=== PATIENT | female | born 1995 | race African-American/Black ===

== ENCOUNTER 2019-05-27 01:53 | Emergency (ER) | payer MEDICAID ==
[~2019-05-27] VITALS: Ht 162.6 cm; Wt 100.0 kg
[2019-05-27 05:00] LABS: *AMPHETAMINES SCREEN URINE NEGATIVE (NEGATIVE); *BARBITURATES SCREEN URINE NEGATIVE (NEGATIVE); *BENZODIAZEPINES SCREEN URINE NEGATIVE (NEGATIVE); *COCAINE SCREEN URINE NEGATIVE (NEGATIVE); METHADONE URINE SCREEN NEGATIVE (NEGATIVE); OPIATES URINE SCREEN NEGATIVE (NEGATIVE); PHENCYCLIDINE URINE SCREEN NEGATIVE (NEGATIVE)
[2019-05-27 05:03] LABS: BASOPHILS % 0.3 % (0.0-2.0); EOSINOPHILS % 0.2 % (0.0-5.0); HEMATOCRIT. 36.2 % (36.0-48.0); HEMOGLOBIN. 11.8 g/dL (12.0-16.0); MEAN CORPUSCULAR HEMOGLOBIN 29.2 pg (28.0-32.0); MEAN CORPUSCULAR VOLUME 89.3 fL (81.0-99.0); MEAN PLATELET VOLUME 8.4 fl (7.4-10.4); NEUTROPHILS % 73.5 % (40.0-76.0); PLATELET 211 x1000/uL (130-400); RED BLOOD CELL COUNT 4.05 mill/uL (4.2-5.4)
[2019-05-27 05:05] LABS: CANNABINOID URINE SCREEN PRESUMTIVE POSITIVE (NEGATIVE)
[2019-05-27 05:09] LABS: CHLORIDE 107 mEq/L (98-107)
[2019-05-27 05:11] LABS: HCG SCREEN NEGATIVE
[2019-05-27 05:11] LABS: CLARITY URINE CLOUDY (CLEAR); COLOR URINE DARK YELLOW (YELLOW); KETONES URINE TRACE (NEGATIVE); LEUKOCYTE ESTERASE URINE NEGATIVE (NEGATIVE); NITRITE URINE NEGATIVE (NEGATIVE); OCCULT BLOOD URINE NEGATIVE (NEGATIVE); PROTEIN URINE 1+ (NEGATIVE); SPECIFIC GRAVITY URINE 1.033 (1.005-1.030)
[2019-05-27 05:13] LABS: ETHANOL BLOOD < 10 mg/dL
[2019-05-27 11:20] VITALS: BP 120/74
== END 2019-05-27 11:33 | disposition home or self-care (01) ==
LOC: ER 05:21
DX: F32.9 Major depressive disorder, single episode, unspecified (principal); F41.9 Anxiety disorder, unspecified; R45.851 Suicidal ideations; R45.850 Homicidal ideations; Z91.14 Patient's other noncompliance with medication regimen
CPT/HCPCS: 36415; 80053; 80305; 80307; 80320; 80329; 81003; 81025; 82962; 84703; 85025; 99284; Z7610; G0480

== ENCOUNTER 2020-09-11 02:07 | Emergency (ER) | payer MEDICAID ==
[~2020-09-11] VITALS: Ht 162.6 cm; Wt 88.0 kg
[2020-09-11] MEDS ORDERED: LIDOCAINE HCL/PF 1% 10 MG/ML 5ML VIAL IJ ONE (02:45)
[2020-09-11] MEDS ORDERED: BACITRACIN ZINC OINT UDPKT TOP ONE (02:45)
[2020-09-11] MEDS ORDERED: HYDROCODONE/ACETAMINOPHEN 5/325MG TABLET PO ONE (02:45)
[2020-09-11] MEDS ORDERED: TETANUS, DIPHTHERIA, PERTUSSIS VAC/PF 0.5ML (>7YR OLD) IM ONE (02:45)
[2020-09-11 03:50] VITALS: BP 128/74
== END 2020-09-11 03:59 | disposition home or self-care (01) ==
LOC: ER 02:07
DX: S51.812A Laceration without foreign body of left forearm, initial encounter (principal); Y93.51 Activity, roller skating (inline) and skateboarding; Y93.89 Activity, other specified; Y92.9 Unspecified place or not applicable
CPT/HCPCS: 12004; 73090; 81025; 90471; 90715; 99283; J3490; Z7610

== ENCOUNTER 2020-09-15 21:47 | Emergency (ER) | payer MEDICAID ==
[~2020-09-15] VITALS: Ht 162.6 cm; Wt 88.0 kg
[2020-09-15 22:31] VITALS: BP 114/48
== END 2020-09-15 23:11 | disposition home or self-care (01) ==
LOC: ER 21:47
DX: R68.89 Other general symptoms and signs (principal); Z53.21 Procedure and treatment not carried out due to patient leaving prior to being seen by health care provider
CPT/HCPCS: 99281

== ENCOUNTER 2020-09-20 10:39 | Emergency (ER) | payer MEDICAID ==
[~2020-09-20] VITALS: Ht 162.6 cm; Wt 88.0 kg
[2020-09-20 10:57] VITALS: BP 115/64
== END 2020-09-20 12:50 | disposition left against medical advice (07) ==
LOC: ER 10:39
DX: Z53.21 Procedure and treatment not carried out due to patient leaving prior to being seen by health care provider (principal)

== ENCOUNTER 2020-09-22 01:46 | Emergency (ER) | payer MEDICAID ==
[~2020-09-22] VITALS: Ht 162.6 cm; Wt 88.0 kg
[2020-09-22] MEDS ORDERED: BACITRACIN ZINC OINT UDPKT TOP SCH (03:00)
[2020-09-22 03:23] VITALS: BP 121/79
== END 2020-09-22 03:25 | disposition home or self-care (01) ==
LOC: ER 01:46
DX: S41.112D Laceration without foreign body of left upper arm, subsequent encounter (principal); L03.114 Cellulitis of left upper limb; F12.10 Cannabis abuse, uncomplicated; X58.XXXD Exposure to other specified factors, subsequent encounter
CPT/HCPCS: 99283